=== PATIENT | male | born 1965 | race Caucasian/White ===

== ENCOUNTER 2020-06-11 08:21 | Emergency (ER) | payer BC, OTHER ==
[2020-06-11] MEDS ORDERED: Aspirin 81 MG Tab.Chew PO ONE (08:34)
--- NOTE | 2020-06-11 08:34 | EDM.PDOC ---
ED HPI GENERAL MEDICAL PROBLEM - General Chief Complaint: Chest Pain Stated Complaint: CHEST PAINS Time Seen by Provider: 06/11/20 08:32 Source of Information: Reports: Patient. Denies: Old Records History Limitations: Reports: Other (no old records) - History of Present Illness INITIAL COMMENTS - FREE TEXT/NARRATIVE: 54 yo male with no cardiac hx awoke today with anterior chest pressure and mild nausea about 0700h today. Is on no meds. No calf pain or LE edema. Here with his . 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 Denies: Vomiting : Reports: No Symptoms Musculoskeletal: Reports: No Symptoms Skin: Reports: No Symptoms Neurological: Reports: No Symptoms ED EXAM, GENERAL - Physical Exam Exam: See Below Exam Limited By: No Limitations General Appearance: Alert, WD/WN, No Apparent Distress Eye Exam: Bilateral Eye: Normal Inspection Ears: Normal External Exam, Normal Canal, Hearing Grossly Normal, Normal TMs Ear Exam: Bilateral Ear: Auricle Normal, Canal Normal Nose: Normal Inspection, No Blood Throat/Mouth: Normal Inspection, Normal Lips, Normal Oropharynx, Normal Voice, No Airway Compromise Head: Atraumatic, Normocephalic Neck: Normal Inspection Respiratory/Chest: No Respiratory Distress, Lungs Clear, Normal Breath Sounds, No Accessory Muscle Use, Chest Non-Tender Cardiovascular: Regular Rate, Rhythm, No Edema GI/Abdominal: Normal Bowel Sounds, Soft, No Distention, Tender (RUQ). No: Distended, Guarding, Rigid, Rebound Neurological: Alert, Oriented, CN II-XII Intact, Normal Cognition, No Motor/Sensory Deficits Psychiatric: Normal Affect, Normal Mood Skin Exam: Warm, Dry, Intact, Normal Color, No Rash #1 Interpretation EKG Date: 06/11/20 Time: 08:20 Rhythm: NSR Rate (Beats/Min): 59 [place]: LAD-Left [place] Deviation P-Wave: Present QRS: Normal ST-T: Elevated (lateral leads) QT: Normal Comparison: NA - No Prior EKG #2 Interpretation EKG Date: 06/11/20 Time: 09:05 Rhythm: NSR Rate (Beats/Min): 64 [place]: LAD-Left [place] Deviation P-Wave: Present QRS: Normal ST-T: Elevated (I, AVL) QT: Normal Comparison: No Change Course - Vital Signs Text/Narrative:: Sandro Lopez called @ [facility], Dr Hurtado accepts. Last Recorded V/S: Last Vital Signs Temp 36.2 C 06/11/20 08:24 Pulse 74 06/11/20 09:05 Resp 12 06/11/20 09:05 BP 134/87 06/11/20 09:05 Pulse Ox 96 06/11/20 09:05 - Orders/Labs/Meds Orders: Active Orders 24 hr Category Date Time Status Cardiac Monitoring [RC] .As Directed Care 06/11/20 08:31 Active EKG Documentation Completion [RC] ASDIRECTED Care 06/11/20 08:31 Active EKG Documentation Completion [RC] ASDIRECTED Care 06/11/20 09:04 Active Abdomen Ltd [US] Stat Exams 06/11/20 09:01 Stop Req UA W/MICROSCOPIC [URIN] Stat Lab 06/11/20 08:39 Ordered Nitroglycerin [Nitrostat] Med 06/11/20 08:34 Active 0.4 mg SL Q5M PRN Sodium Chloride 0.9% [Saline Flush] Med 06/11/20 08:37 Active 10 ml FLUSH ASDIRECTED PRN Saline Lock Insert [OM.PC] Routine Oth 06/11/20 08:37 Ordered EKG 12 Lead [EK] Routine Ther 06/11/20 08:31 Ordered EKG 12 Lead [EK] Routine Ther 06/11/20 09:04 Ordered Medication Orders Nitroglycerin (Nitrostat) 0.4 mg SL Q5M PRN PRN Reason: Chest Pain Last Admin: 06/11/20 09:01 Dose: 0.4 mg Documented by: Admin: 06/11/20 08:54 Dose: 0.4 mg Documented by: JN Sodium Chloride (Saline Flush) 10 ml FLUSH ASDIRECTED PRN PRN Reason: Keep Vein Open Labs: Laboratory Tests 06/11/20 06/11/20 Range/Units 08:39 08:39 WBC 7.6 (4.5-11.0) K/uL RBC 5.28 (4.30-5.90) M/uL Hgb 16.6 H (12.0-15.0) g/dL Hct 47.7 (40.0-54.0) % MCV 90 (80-98) fL MCH 31 (27-31) pg MCHC 35 (32-36) % Plt Count 179 (150-400) K/uL Sodium 140 (140-148) mmol/L Potassium 3.9 (3.6-5.2) mmol/L Chloride 103 (100-108) mmol/L Carbon Dioxide 28 (21-32) mmol/L Anion Gap 9.0 (5.0-14.0) mmol/L BUN 20 H (7-18) mg/dL Creatinine 1.2 (0.8-1.3) mg/dL Est Cr Clr Drug Dosing 69.67 mL/min Estimated GFR (MDRD) > 60 (>60) Glucose 108 H (74-106) mg/dL Calcium 9.0 (8.5-10.1) mg/dL Troponin I < 0.017 (0.000-0.056) ng/mL Meds: Medications Generic Name Dose Route Start Last Admin Trade Name Freq PRN Reason Stop Dose Admin Nitroglycerin 0.4 mg 06/11/20 08:34 06/11/20 09:01 Nitrostat SL 0.4 mg Q5M PRN Administration Chest Pain Sodium Chloride 10 ml 06/11/20 08:37 Saline Flush FLUSH ASDIRECTED PRN Keep Vein Open Discontinued Medications Generic Name Dose Route Start Last Admin Trade Name Freq PRN Reason Stop Dose Admin Aspirin 324 mg 06/11/20 08:34 06/11/20 08:45 Aspirin PO 06/11/20 08:35 324 mg ONETIME ONE Administration Heparin Sodium (Porcine) 4,000 units 06/11/20 08:38 06/11/20 08:57 Heparin Sodium IVPUSH 06/11/20 08:39 4,000 units ONETIME ONE Administration Metoprolol Tartrate 50 mg 06/11/20 08:37 06/11/20 08:46 Lopressor PO 06/11/20 08:38 50 mg ONETIME ONE Administration Morphine Sulfate 4 mg 06/11/20 08:39 06/11/20 08:51 Morphine IVPUSH 06/11/20 08:40 4 mg ONETIME ONE Administration Ondansetron HCl 4 mg 06/11/20 08:39 06/11/20 08:51 Zofran IVPUSH 06/11/20 08:40 4 mg ONETIME ONE Administration Ticagrelor 180 mg 06/11/20 08:38 06/11/20 08:45 Brilinta PO 06/11/20 08:39 180 mg ONETIME ONE Administration - Re-Assessments/Exams Free Text/Narrative Re-Assessment/Exam: 06/11/20 09:10 Pain reduced after NTG #1, gone after 2nd. RUQ pain also not there any longer. Departure - Departure Time of Disposition: 09:40 Disposition: DC/Tfer to Acute Hospital 02 Reason for Transfer *Q: Primary PCI Indicated Condition: Serious Clinical Impression: Acute myocardial infarction Qualifiers: Myocardial infarction type: ST elevation myocardial infarction Involved coronary artery: unspecified coronary artery Qualified Code(s): I21.3 - ST elevation (STEMI) myocardial infarction of unspecified site Referrals: PCP,None [Primary Care Provider] - Forms: ED Department Discharge Sepsis Event Note (ED) - Focused Exam Vital Signs: Vital Signs Temp Pulse Pulse Resp BP BP Pulse Ox 06/11/20 09:05 74 12 134/87 96 06/11/20 09:01 137/87 06/11/20 08:58 74 14 137/87 95 06/11/20 08:54 165/85 H 06/11/20 08:46 77 165/85 H 06/11/20 08:24 36.2 C 59 L 16 165/85 H 99 - My Orders Last 24 Hours: My Active Orders 06/11/20 08:31 Cardiac Monitoring [RC] .As Directed EKG Documentation Completion [RC] ASDIRECTED EKG 12 Lead [EK] Routine 06/11/20 08:34 Nitroglycerin [Nitrostat] 0.4 mg SL Q5M PRN 06/11/20 08:37 Sodium Chloride 0.9% [Saline Flush] 10 ml FLUSH ASDIRECTED PRN Saline Lock Insert [OM.PC] Routine 06/11/20 08:39 UA W/MICROSCOPIC [URIN] Stat 06/11/20 09:01 Abdomen Ltd [US] Stat 06/11/20 09:04 EKG Documentation Completion [RC] ASDIRECTED EKG 12 Lead [EK] Routine - Assessment/Plan Last 24 Hours: My Active Orders 06/11/20 08:31 Cardiac Monitoring [RC] .As Directed EKG Documentation Completion [RC] ASDIRECTED EKG 12 Lead [EK] Routine 06/11/20 08:34 Nitroglycerin [Nitrostat] 0.4 mg SL Q5M PRN 06/11/20 08:37 Sodium Chloride 0.9% [Saline Flush] 10 ml FLUSH ASDIRECTED PRN Saline Lock Insert [OM.PC] Routine 06/11/20 08:39 UA W/MICROSCOPIC [URIN] Stat 06/11/20 09:01 Abdomen Ltd [US] Stat 06/11/20 09:04 EKG Documentation Completion [RC] ASDIRECTED EKG 12 Lead [EK] Routine
[2020-06-11] MEDS ORDERED: Metoprolol Tartrate 50 MG Tab PO ONE (08:37)
[2020-06-11] MEDS ORDERED: Sodium Chloride 0.9% 10 ML Syringe FLUSH PRN (08:37)
[2020-06-11] MEDS ORDERED: Ticagrelor 90 MG Tab PO ONE (08:38)
[2020-06-11] MEDS ORDERED: Heparin Sodium 5,000 Units/ML Vial IVPUSH ONE (08:38)
[2020-06-11] MEDS ORDERED: Ondansetron 4 MG/2 ML SDV IVPUSH ONE (08:39)
[2020-06-11] MEDS ORDERED: Morphine 4 MG/ML Syringe IVPUSH ONE (08:39)
[2020-06-11] MEDS: Nitroglycerin 0.4 MG Tab.SL SL PRN ×3 (08:54→09:21)
[2020-06-11] MEDS ORDERED: Nitroglycerin/D5W 25 MG/250 ML BOTTLE IV SCH (09:30)
== END 2020-06-11 09:50 ==
LOC: JP.ED 08:21
DX: I21.3 ST elevation (STEMI) myocardial infarction of unspecified site (principal); Z88.2 Allergy status to sulfonamides
CPT/HCPCS: 36415; 80048; 84484; 85027; 93005; 96365; 96375; 99285; A9270; J1644; J2270; J2405; J3490; 93010